=== PATIENT | male | born 1940 | race Caucasian/White ===

== ENCOUNTER 2018-08-09 12:50 | Outpatient (CLI) | payer MEDICARE | END 2018-08-14 13:38 | disposition home or self-care (01) | LOC: CVU 12:50 | PROVIDERS: ATTEND Internal Medicine Cardiovascular Disease | DX: I08.3 Combined rheumatic disorders of mitral, aortic and tricuspid valves (principal); E78.5 Hyperlipidemia, unspecified; I25.10 Atherosclerotic heart disease of native coronary artery without angina pectoris; I25.2 Old myocardial infarction; Z87.891 Personal history of nicotine dependence | CPT/HCPCS: 93306 ==

== ENCOUNTER 2019-08-14 13:05 | Outpatient (CLI) | payer MEDICARE ==
[~2019-08-14 13:05] MED LIST: APIX5TAB PO; ASPI-650 PO; CYCL5TAB PO; FLUO20TA25 PO; LEVO25TA4 PO; METH4TAB PO; METO25TA35 PO; MONT10TA9 PO; OXYC-307 PO; PRAV80TA2 PO; TAMS-11 PO; TRAZ50TA66 PO
[2019-08-14 14:38] LABS: BASOPHILS # (AUTO) 0.03 x10^3/uL (0-0.1); BASOPHILS % (AUTO) 0 % (0-1); EOSINOPHILS # (AUTO) 0.24 x10^3/uL (0-0.4); EOSINOPHILS % (AUTO) 4 % (1-7); LYMPHOCYTES % (AUTO) 24 % (22-44); MD NO; MEAN CORPUSCULAR HEMOGLOBIN 30.9 pg (27.5-34.5); MEAN CORPUSCULAR VOLUME 93.7 fL (81-97); MEAN PLATELET VOLUME 8.6 fL (7.4-10.4); MONOCYTES # (AUTO) 0.55 x10^3/uL (0.2-0.8); MONOCYTES % (AUTO) 8 % (2-9); NEUTROPHILS # (AUTO) 4.24 x10^3/uL (1.8-6.8); NEUTROPHILS % (AUTO) 64 % (42-75); PLATELET COUNT 221 x10^3/uL (130-400); RED BLOOD COUNT 5.19 x10^6/uL (4.38-5.82); RED CELL DISTRIBUTION WIDTH 13.8 % (9.4-14.8)
[2019-08-14 14:42] LABS: ANION GAP 6 mmol/L (5-15); CALCIUM 8.9 mg/dL (8.5-10.1); CHLORIDE 105 mmol/L (98-107); CREATININE 0.93 mg/dL (0.7-1.3); INTERNATIONAL NORMALIZED RATIO 1.1 (0.93-1.1); PROTHROMBIN TIME 11.5 Seconds (9.6-11.5)
[2019-08-14] MEDS ORDERED: METO25TA35 PO (15:48)
[2019-08-14] MEDS ORDERED: APIX5TAB PO (15:48)
== END 2019-08-14 23:59 | disposition home or self-care (01) ==
LOC: STAR 13:05
PROVIDERS: ATTEND Neurological Surgery
DX: M48.062 Spinal stenosis, lumbar region with neurogenic claudication (principal); Z87.891 Personal history of nicotine dependence; Z85.828 Personal history of other malignant neoplasm of skin; Z80.6 Family history of leukemia; Z79.01 Long term (current) use of anticoagulants
CPT/HCPCS: 36415; 80048; 85025; 85610; 85730

== ENCOUNTER 2019-08-26 13:24 | Day surgery (SDC) | payer MEDICARE ==
[~2019-08-26] VITALS: Ht 177.8 cm; Wt 108.0 kg
[2019-08-26] MEDS ORDERED: LACTATED RINGERS 1,000 ML IV SCH (13:49)
[2019-08-26 14:11] VITALS: BP 115/72
[2019-08-26] MEDS ORDERED: LIDOCAINE 1%, 20ML ONE (14:29)
[2019-08-26] MEDS ORDERED: PROPOFOL 10 MG/ML, 50ML ONE (15:40)
[2019-08-26] MEDS ORDERED: METOCLOPRAMIDE 5 MG/ML, 2ML IV PRN (16:30)
[2019-08-26] MEDS ORDERED: KETOROLAC 30 MG/1 ML IV PRN (16:30)
[2019-08-26] MEDS ORDERED: HYDROmorphone 1 MG/ML, 1ML INJ IV PRN (16:30)
[2019-08-26] MEDS ORDERED: ALBUTEROL SULFATE 2.5 MG/3 ML NPPB PRN (16:30)
[2019-08-26] MEDS ORDERED: LABETALOL 5MG/ML, 20ML IV PRN (16:30)
[2019-08-26] MEDS ORDERED: FENTANYL PF 100 MCG/2ML IV PRN (16:30)
[2019-08-26] MEDS ORDERED: PROMETHAZINE 25 MG/ML, 1ML IV PRN (16:30)
[2019-08-26] MEDS ORDERED: MEPERIDINE/PF 25MG/0.5ML IVPush PRN (16:30)
[2019-08-26] MEDS ORDERED: hydrALAzine 20 MG/ML, 1ML IV PRN (16:30)
[2019-08-26] MEDS ORDERED: ONDANSETRON 2MG/ML, 2ML IVPush PRN (16:30)
[2019-08-26] MEDS ORDERED: OXYcodone 5 MG/5 ML ORAL.SOL UDC PO PRN (16:30)
[2019-08-30] MEDS ORDERED: SENN-52 PO (02:23)
[2019-08-30] MEDS ORDERED: MAGN2400 PO (02:24)
== END 2019-08-26 18:30 | disposition home or self-care (01) ==
LOC: OR 13:24
PROVIDERS: ATTEND Surgery
DX: I26.99 Other pulmonary embolism without acute cor pulmonale (principal); I25.10 Atherosclerotic heart disease of native coronary artery without angina pectoris; I25.2 Old myocardial infarction; I10 Essential (primary) hypertension; Z86.718 Personal history of other venous thrombosis and embolism; Z96.653 Presence of artificial knee joint, bilateral; Z98.890 Other specified postprocedural states; Z99.81 Dependence on supplemental oxygen
CPT/HCPCS: 37191; 74018; 93005; C1769; C1880; J2704; J7120; 76000

== ENCOUNTER → 2020-03-06 | Outpatient (CLI) | payer MEDICARE ==
[~2020-03-06] MED LIST changes: +MAGN24003 PO; +MONT10TA11 PO; -MONT10TA9 PO; +SENN-52 PO
== END | disposition home or self-care (01) ==
LOC: CFH 14:58
PROVIDERS: ATTEND Nurse Practitioner
DX: R60.0 Localized edema (principal)

== ENCOUNTER → 2020-08-18 | Outpatient (CLI) | payer MEDICARE | END | disposition home or self-care (01) | LOC: CVU 08:18 | PROVIDERS: ATTEND Internal Medicine Cardiovascular Disease | DX: I08.3 Combined rheumatic disorders of mitral, aortic and tricuspid valves (principal); I71.2 Thoracic aortic aneurysm, without rupture; I70.8 Atherosclerosis of other arteries; I25.2 Old myocardial infarction; E78.5 Hyperlipidemia, unspecified; I10 Essential (primary) hypertension; Z87.891 Personal history of nicotine dependence | CPT/HCPCS: 93306; 93356; 93978 ==